=== PATIENT | male | born 1995 | race Hispanic/Latino ===

== ENCOUNTER 2018-02-04 23:30 | Emergency (ER) | payer OTHER, SELFPAY ==
[2018-02-05] MEDS ORDERED: NA CHLORIDE 0.9% 1,000 ML ONE (00:14)
[2018-02-05 00:37] LABS: Absolute Lymphocytes (CBC) 1.2 K/uL (0.7-4.9); Absolute Monocytes 0.5 K/uL (0.1-1.3); Absolute Neutrophil 9.7 K/uL (1.8-8.0); Basophils % 0.2 % (0-1.3); Eosinophils % 1.2 % (0-4.4); Hematocrit 37.6 % (39.6-49.0); Lymphocytes % 10.1 % (15.3-44.8); MCH 29.9 pg (27.0-35.0); MCV 87.9 fL (80-100); MPV 7.4 fL (7.6-11.3); Monocytes % 4.1 % (3.3-12.3); RBC Red Blood Cell Count 4.28 M/uL (4.33-5.43)
[2018-02-05 00:46] LABS: ALT/SGPT 28 U/L (12-78); AST/SGOT 21 U/L (15-37); Albumin 4.3 g/dL (3.4-5.0); Alkaline Phosphatase 56 U/L (45-117); BUN Blood Urea Nitrogen 10 mg/dL (7-18); Bicarbonate 28 mmol/L (21-32); Bilirubin Direct 0.2 mg/dL (0-0.2); Bilirubin Total 1.1 mg/dL (0.2-1.0); Glucose Level 97 mg/dL (74-106); Lipase 102 U/L (73-393); Potassium 3.6 mmol/L (3.5-5.1); Protein, Total 8.5 g/dL (6.4-8.2); Sodium Level 137 mmol/L (136-145)
[2018-02-05 01:11] LABS: Creatine Phosphokinase 159 U/L (39-308)
--- NOTE | 2018-02-05 01:23 | EDPHYS ---
Physician Documentation [facility] Name: Sundar Butler Age: 22 yrs Sex: Male : 1995 Arrival Date: 02/04/2018 Time: 23:34 Bed 24 Private MD: ED Physician Garry Barron HPI: 02/05 01:21 This 22 yrs old Male presents to ER via Ambulatory with complaints of General snw Weakness, BODY ACHES. 01:21 Working out in the heat and began to feel weak, lightheaded and nauseated. Onset: The snw symptoms/episode began/occurred gradually, and became persistent. Severity of symptoms: At their worst the symptoms were moderate. It is unknown whether or not the patient has had similar symptoms in the past. The patient has not recently seen a physician. Historical: - Allergies: 02/04 23:48 No Known Allergies; rv - Home Meds: 23:48 None [Active]; rv - PMHx: 23:48 None; rv - PSHx: 23:48 None; rv - Immunization history:: Adult Immunizations up to date. - Social history:: Smoking status: Patient/guardian denies using tobacco, never smoked. - Ebola Screening: : Patient negative for fever greater than or equal to 101.5 degrees Fahrenheit, and additional compatible Ebola Virus Disease symptoms Patient denies exposure to infectious person Patient denies travel to an Ebola-affected area in the 21 days before illness onset. ROS: 02/05 01:20 Eyes: Negative for injury, pain, redness, and discharge, ENT: Negative for injury, snw pain, and discharge, Neck: Negative for injury, pain, and swelling, Cardiovascular: Negative for chest pain, palpitations, and edema, Respiratory: Negative for shortness of breath, cough, wheezing, and pleuritic chest pain. Back: Negative for injury and pain, : Negative for injury, bleeding, discharge, and swelling, MS/Extremity: Negative for injury and deformity, Skin: Negative for injury, rash, and discoloration. Constitutional: Positive for body aches, malaise, poor PO intake. Constitutional: Positive for fatigue. Abdomen/GI: Positive for vomiting, x 1. Neuro: Positive for lightheadedness at work. Exam: 01:20 Constitutional: This is a well developed, well nourished patient who is awake, alert, snw and in no acute distress. Head/Face: Normocephalic, atraumatic. Eyes: Pupils equal round and reactive to light, extra-ocular motions intact. Lids and lashes normal. Conjunctiva and sclera are non-icteric and not injected. Cornea within normal limits. Periorbital areas with no swelling, redness, or edema. ENT: Nares patent. No nasal discharge, no septal abnormalities noted. Tympanic membranes are normal and external auditory canals are clear. Oropharynx with no redness, swelling, or masses, exudates, or evidence of obstruction, uvula midline. Mucous membranes moist. Neck: Trachea midline, no thyromegaly or masses palpated, and no cervical lymphadenopathy. Supple, full range of motion without nuchal rigidity, or vertebral point tenderness. No Meningismus. Chest/axilla: Normal chest wall appearance and motion. Nontender with no deformity. No lesions are appreciated. Cardiovascular: Regular rate and rhythm with a normal S1 and S2. No gallops, murmurs, or rubs. Normal PMI, no JVD. No pulse deficits. Respiratory: Lungs have equal breath sounds bilaterally, clear to auscultation and percussion. No rales, rhonchi or wheezes noted. No increased work of breathing, no retractions or nasal flaring. Abdomen/GI: Soft, non-tender, with normal bowel sounds. No distension or tympany. No guarding or rebound. No evidence of tenderness throughout. Back: No spinal tenderness. No costovertebral tenderness. Full range of motion. Skin: Warm, dry with normal turgor. Normal color with no rashes, no lesions, and no evidence of cellulitis. MS/ Extremity: Pulses equal, no cyanosis. Neurovascular intact. Full, normal range of motion. Neuro: Awake and alert, GCS 15, oriented to person, place, time, and situation. Cranial nerves II-XII grossly intact. Motor strength 5/5 in all extremities. Sensory grossly intact. Cerebellar exam normal. Normal gait. Vital Signs: 02/04 23:48 BP 114 / 73; Pulse 97; Pulse Ox 99% on R/A; Weight 73.21 kg (M); Height 5 ft. 5 in. rv (165.10 cm) (R); 02/05 00:44 BP 97 / 82; Pulse 90; Pulse Ox 100% ; rv 01:16 BP 115 / 78; Pulse 87; Pulse Ox 100% ; rv 02/04 23:48 Body Mass Index 26.86 (73.21 kg, 165.10 cm) rv MDM: 02/04 23:54 Patient medically screened. [facility] 02/05 01:24 Data reviewed: vital signs, nurses notes. Data interpreted: Pulse oximetry: on room air snw is 100 %. Interpretation: normal. Counseling: I had a detailed discussion with the patient and/or guardian regarding: the historical points, exam findings, and any diagnostic results supporting the discharge/admit diagnosis, lab results, the need for outpatient follow up, to return to the emergency department if symptoms worsen or persist or if there are any questions or concerns that arise at home. Special discussion: Based on the history and exam findings, there is no indication for further emergent testing or inpatient evaluation. I discussed with the patient/guardian the need to see the primary care provider for further evaluation of the symptoms. 02/05 00:01 Order name: Basic Metabolic Panel; Complete Time: 01:19 snw 02/05 00:01 Order name: CBC with Diff; Complete Time: 00:57 snw 02/05 00:01 Order name: Hepatic Function; Complete Time: : snw 02/05 00:01 Order name: Lipase; Complete Time: : snw 02/05 00:55 Order name: Urine Dipstick--Ancillary (enter results) ms 02/05 00:58 Order name: Add On-Lab [facility] 02/05 00:01 Order name: IV Saline Lock; Complete Time: 00:09 w 02/05 00:01 Order name: Labs collected and sent; Complete Time: 00:09 snw 02/05 00:01 Order name: Urine Dipstick-Ancillary (obtain specimen); Complete Time: 00:43 snw 02/05 00:59 Order name: Creatine Phosphokinase; Complete Time: 01:19 EDMS Administered Medications: 00:05 Drug: NS 0.9% 1000 ml Route: IV; Rate: 1 bolus; Site: right antecubital; rv 00:43 Follow up: IV Status: Completed infusion rv Disposition: 06:42 Co-signature as Attending Physician, Garry Barron MD I agree with the assessment and [facility] plan of care. Disposition: 02/05/18 01:23 Discharged to Home. Impression: Heat exhaustion, unspecified. - Condition is Stable. - Discharge Instructions: Heat Exhaustion Information. - Prescriptions for Zofran 4 mg Oral Tablet - take 1 tablet by ORAL route every 12 hours As needed; 6 tablet. - Work release form, Medication Reconciliation Form, Thank You Letter, Antibiotic Education, Prescription Opioid Use form. - Follow up: Private Physician; When: 2 - 3 days; Reason: Recheck today's complaints, Continuance of care, Re-evaluation by your physician. Follow up: Emergency Department; When: As needed; Reason: Worsening of condition. Signatures: Dispatcher [employer] EDMS Garry Barron, Chikis Perales MD, cha, FURNITURE ASSEMBLY SUPERVISOR-C FURNITURE ASSEMBLY SUPERVISOR-Csnw Carl Russell RN RN rv Corrections: (The following items were deleted from the chart) 01:45 01:23 02/05/2018 01:23 Discharged to Home. Impression: Heat exhaustion, unspecified. rv Condition is Stable. Forms are Medication Reconciliation Form, Thank You Letter, Antibiotic Education, Prescription Opioid Use. Follow up: Private Physician; When: 2 - 3 days; Reason: Recheck today's complaints, Continuance of care, Re-evaluation by your physician. Follow up: Emergency Department; When: As needed; Reason: Worsening of condition. snw
--- NOTE | 2018-02-05 01:23 | ER ---
Nurse's Notes [facility] Name: Sundar Butler Age: 22 yrs Sex: Male : 1995 Arrival Date: 02/04/2018 Time: 23:34 Bed 24 Private MD: Diagnosis: Heat exhaustion, unspecified Presentation: 02/04 23:47 Presenting complaint: Patient states: "I FEEL WEAK AND MY BODY ACHES AFTER WORK. IM OUT rv IN THE SUN ALL DAY.". Transition of care: patient was not received from another setting of care. Onset of symptoms was February 04, 2018 at 17:00. Risk Assessment: Do you want to hurt yourself or someone else?. Risk Assessment: Do you want to hurt yourself or someone else? Patient reports no desire to harm self or others. Initial Sepsis Screen: Does the patient meet any 2 criteria? No. Patient's initial sepsis screen is negative. Does the patient have a suspected source of infection? No. Patient's initial sepsis screen is negative. Care prior to arrival: None. 23:47 Method Of Arrival: Ambulatory rv 23:47 Acuity: JONATHAN 3 rv Historical: - Allergies: 23:48 No Known Allergies; rv - Home Meds: 23:48 None [Active]; rv - PMHx: 23:48 None; rv - PSHx: 23:48 None; rv - Immunization history:: Adult Immunizations up to date. - Social history:: Smoking status: Patient/guardian denies using tobacco, never smoked. - Ebola Screening: : Patient negative for fever greater than or equal to 101.5 degrees Fahrenheit, and additional compatible Ebola Virus Disease symptoms Patient denies exposure to infectious person Patient denies travel to an Ebola-affected area in the 21 days before illness onset. Screenin:50 Abuse screen: Denies threats or abuse. Denies injuries from another. Nutritional rv screening: No deficits noted. Tuberculosis screening: No symptoms or risk factors identified. Fall Risk None identified. Assessment: 23:49 General: Appears in no apparent distress. comfortable, Behavior is calm, cooperative. rv Pain:. Pain: Complains of pain in GENERALIZED. Neuro: Level of Consciousness is awake, alert, obeys commands, Oriented to person, place, time, situation. Cardiovascular: Capillary refill < 3 seconds. Respiratory: Airway is patent. GI: No signs and/or symptoms were reported involving the gastrointestinal system. : No signs and/or symptoms were reported regarding the genitourinary system. EENT: No signs and/or symptoms were reported regarding the EENT system. Derm: Skin is intact. Musculoskeletal: Reports weakness in GENERALIZED. 02/05 01:17 Reassessment: Patient appears in no apparent distress at this time. Patient and/or rv family updated on plan of care and expected duration. Pain level reassessed. Patient is alert, oriented x 3, equal unlabored respirations, skin warm/dry/pink. Vital Signs: 02/04 23:48 BP 114 / 73; Pulse 97; Pulse Ox 99% on R/A; Weight 73.21 kg (M); Height 5 ft. 5 in. rv (165.10 cm) (R); 02/05 00:44 BP 97 / 82; Pulse 90; Pulse Ox 100% ; rv 01:16 BP 115 / 78; Pulse 87; Pulse Ox 100% ; rv 02/04 23:48 Body Mass Index 26.86 (73.21 kg, 165.10 cm) rv ED Course: 02/04 23:34 Patient arrived in ED. al2 23:35 Chikis Roche F[facility]-C [facility] snw 23:35 Garry Barron MD is Attending Physician. snw 23:48 Triage completed. rv 23:50 Patient has correct armband on for positive identification. Bed in low position. Call rv light in reach. Side rails up X 1. Pulse ox on. NIBP on. 23:50 Patient placed in an exam room, on a stretcher, on pulse oximetry. rv 02/05 00:00 Inserted saline lock: 20 gauge in right antecubital area, using aseptic technique. rv 01:45 No provider procedures requiring assistance completed. IV discontinued, bleeding rv controlled, No redness/swelling at site. Pressure dressing applied. Administered Medications: 00:05 Drug: NS 0.9% 1000 ml Route: IV; Rate: 1 bolus; Site: right antecubital; rv 00:43 Follow up: IV Status: Completed infusion rv Outcome: 01:23 Discharge ordered by . snw 01:45 Discharged to home ambulatory. rv 01:45 Condition: good 01:45 Discharge instructions given to patient, Instructed on discharge instructions, follow up and referral plans. medication usage, Prescriptions given X 1. 01:45 Patient left the ED. rv Signatures: Chikis Roche, DISPATCHER AUTOMOBILE RENTAL-C DISPATCHER AUTOMOBILE RENTAL-Csnw Darlene Perla Ronaldo, RN RN rv
[2018-02-05 04:38] LABS: Urine Blood NEGATIVE (NEG); Urine Glucose NEGATIVE (NEG); Urine Protein NEGATIVE (NEG)
== END 2018-02-05 01:45 | disposition home or self-care (01) ==
LOC: ER 23:30
DX: T67.5XXA Heat exhaustion, unspecified, initial encounter (principal); X58.XXXA Exposure to other specified factors, initial encounter; Y93.89 Activity, other specified; Y92.9 Unspecified place or not applicable
CPT/HCPCS: 36415; 80048; 80076; 81003; 82550; 83690; 85025; 96360; 99284; J7030

== ENCOUNTER 2020-05-21 09:08 | Emergency (ER) | payer SELFPAY ==
[2020-05-21] MEDS ORDERED: HALOPERIDOL LACT 5 MG/ML INJ ONE (10:25)
[2020-05-21] MEDS ORDERED: NA CHLORIDE 0.9% 1,000 ML ONE (10:25)
[2020-05-21] MEDS ORDERED: DIPHENHYDRAMINE 50 MG/ML VIAL ONE (10:28)
[2020-05-21 10:35] LABS: Absolute Lymphocytes (CBC) 1.2 K/uL (0.7-4.9); Basophils % 0.2 % (0-1.3); Hematocrit 39.7 % (39.6-49.0); Lymphocytes % 10.8 % (15.3-44.8); MPV 7.5 fL (7.6-11.3)
[2020-05-21 10:51] LABS: ALT/SGPT 34 U/L (12-78); AST/SGOT 21 U/L (15-37); Albumin 4.9 g/dL (3.4-5.0); Alkaline Phosphatase 55 U/L (45-117); BUN Blood Urea Nitrogen 14 mg/dL (7-18); Bicarbonate 19 mmol/L (21-32); Bilirubin Direct 0.2 mg/dL (0-0.2); Glucose Level 124 mg/dL (74-106); Lipase 88 U/L (73-393); Potassium 3.6 mmol/L (3.5-5.1); Protein, Total 9.4 g/dL (6.4-8.2); Sodium Level 140 mmol/L (136-145)
--- NOTE | 2020-05-21 11:27 | EDPHYS ---
Physician Documentation [facility] Name: Sundar Butler Age: 24 yrs Sex: Male : 1995 Arrival Date: 05/21/2020 Time: 09:09 Bed 17 Private MD: ED Physician Hipolito Holm HPI: 05/21 10:03 This 24 yrs old Male presents to ER via Ambulatory with complaints of jmm Abdominal Pain. 10:03 The patient presents with abdominal pain. Onset: The symptoms/episode began/occurred jm acutely, today. The symptoms do not radiate. Associated signs and symptoms: Pertinent positives: nausea and vomiting. The symptoms are described as achy. This is a 24 year old male with no chronic medical conditions that presents to the ED with complaints of generalized abdominal pain, vomiting beginning today. Patient admits to daily marijuana use. Denies fever, denies diarrhea. . Historical: - Allergies: 10:01 No Known Allergies; ca1 - Home Meds: 10:01 None [Active]; ca1 - PMHx: 10: None; ca1 - PSHx: 10:01 None; ca1 - Immunization history:: Adult Immunizations up to date, Flu vaccine is not up to date. - Social history:: Smoking status: Patient denies any tobacco usage or history of. ROS: 10:03 Constitutional: Negative for fever, chills, and weight loss, Cardiovascular: Negative jmm for chest pain, palpitations, and edema, Respiratory: Negative for shortness of breath, cough, wheezing, and pleuritic chest pain. 10:03 Abdomen/GI: Positive for abdominal pain, nausea and vomiting. 10:03 All other systems are negative. Exam: 10:03 Head/Face: atraumatic. Eyes: EOMI, no conjunctival erythema appreciated ENT: Moist jmm Mucus Membranes Neck: Trachea midline, Supple Chest/axilla: Normal chest wall appearance and motion. Cardiovascular: Regular rate and rhythm. No edema appreciated Respiratory: Normal respirations, no respiratory distress appreciated 10:03 Back: Normal ROM Skin: General appearance color normal MS/ Extremity: Moves all extremities, no obvious deformities appreciated, no edema noted to the lower extremities Neuro: Awake and alert, normal gait Psych: Behavior is normal, Mood is normal, Patient is cooperative and pleasant 10:03 Constitutional: The patient appears alert, awake, in obvious distress. 10:03 Abdomen/GI: Inspection: abdomen appears normal, Bowel sounds: normal, Palpation: soft, mild abdominal tenderness, in all quadrants. Vital Signs: 10:00 BP 123 / 71; Pulse 72; Resp 16 S; Temp 97.1(TE); Pulse Ox 100% on R/A; Weight 70.31 kg ca1 (R); Height 5 ft. 5 in. (165.10 cm) (R); Pain 10/10; 10:46 BP 117 / 80; Pulse 91; Resp 16 S; Pulse Ox 100% on R/A; ca1 11:26 BP 107 / 63; Pulse 89; Resp 16 S; Pulse Ox 100% on R/A; ca1 10:00 Body Mass Index 25.79 (70.31 kg, 165.10 cm) ca1 MDM: 10:03 Patient medically screened. [facility] 11:25 Data reviewed: vital signs, nurses notes. Counseling: I had a detailed discussion with [facility] the patient and/or guardian regarding: the historical points, exam findings, and any diagnostic results supporting the discharge/admit diagnosis, lab results, the need for outpatient follow up, to return to the emergency department if symptoms worsen or persist or if there are any questions or concerns that arise at home. Refusal of service: The patient/guardian displays adequate decision making capability and despite a detailed discussion of alternatives, benefits, risks, and consequences refuses: CT Scan. ED course: Pain decreased with IV haldol. Pain decreased on reexamination. Patient given strict return precautions. Patient understood and agrees with the plan of care. . 05/21 10:04 Order name: Basic Metabolic Panel; Complete Time: 10:53 [facility] 05/21 10:04 Order name: CBC with Diff [facility] 05/21 10:04 Order name: Hepatic Function; Complete Time: 10:53 [facility] 05/21 10:04 Order name: Lipase; Complete Time: 10:53 [facility] 05/21 10:04 Order name: IV Saline Lock; Complete Time: 10:07 [facility] 05/21 10:04 Order name: Labs collected and sent; Complete Time: 10:08 [facility] Administered Medications: 10:10 Drug: NS 0.9% 1000 ml Route: IV; Rate: 1 bolus; Site: right antecubital; ca1 10:13 Drug: HALdol 5 mg Route: IVP; Site: right antecubital; ca1 10:15 Drug: diphenhydrAMINE 25 mg Route: IVP; Site: right antecubital; ca1 Disposition: 12:27 Co-signature as Attending Physician, Hipolito Holm MD. rn Disposition: 05/21/20 11:26 Discharged to Home. Impression: Vomiting. - Condition is Stable. - Discharge Instructions: Nausea and Vomiting, Adult. - Prescriptions for Zofran ODT 4 mg Oral tablet,disintegrating - place 1 tablet by TRANSLINGUAL route every 4-6 hours; 20 tablet. - Medication Reconciliation Form, Thank You Letter, Antibiotic Education, Prescription Opioid Use form. - Follow up: Private Physician; When: 2 - 3 days; Reason: Recheck today's complaints, Continuance of care, Re-evaluation by your physician. Signatures: Dispatcher [employer] EDMS Souleymane Rivera PA PA jmm Nieto, Roman, MD MD rn Acob, KIM Soriano RN ca1 Corrections: (The following items were deleted from the chart) 11:35 11:26 05/21/2020 11:26 Discharged to Home. Impression: Vomiting. Condition is Stable. ca1 Forms are Medication Reconciliation Form, Thank You Letter, Antibiotic Education, Prescription Opioid Use. Follow up: Private Physician; When: 2 - 3 days; Reason: Recheck today's complaints, Continuance of care, Re-evaluation by your physician. genesis
--- NOTE | 2020-05-21 11:27 | ER ---
Nurse's Notes [facility] Name: Sundar Butler Age: 24 yrs Sex: Male : 1995 Arrival Date: 05/21/2020 Time: 09:09 Bed 17 Private MD: Diagnosis: Vomiting Presentation: 05/21 10:00 Chief complaint: Patient states: Abdl pain since 0600 today. Reports N/V/D. Coronavirus ca1 screen: Client denies travel out of the [place] in the last 14 days. diarrhea, nausea, vomiting. Client presents with at least one sign or symptom that may indicate coronavirus-19. Standard/surgical mask placed on the client. Provider contacted for isolation considerations. Ebola Screen: Patient negative for fever greater than or equal to 101.5 degrees Fahrenheit, and additional compatible Ebola Virus Disease symptoms Patient denies exposure to infectious person. Patient denies travel to an Ebola-affected area in the 21 days before illness onset. No symptoms or risks identified at this time. Initial Sepsis Screen: Does the patient meet any 2 criteria? No. Patient's initial sepsis screen is negative. Does the patient have a suspected source of infection? No. Patient's initial sepsis screen is negative. Risk Assessment: Do you want to hurt yourself or someone else? Patient reports no desire to harm self or others. Onset of symptoms was May 21, 2020 at 06:00. 10:00 Method Of Arrival: Ambulatory ca1 10:00 Acuity: JONATHAN 2 ca1 Triage Assessment: 10:01 General: Appears in no apparent distress. uncomfortable, Behavior is cooperative, ca1 appropriate for age, crying. Pain: Complains of pain in abdomen Pain currently is 10 out of 10 on a pain scale. Pain began 4 hours ago. Is continuous. EENT: No signs and/or symptoms were reported regarding the EENT system. Neuro: Level of Consciousness is awake, alert, obeys commands, Oriented to person, place, time, situation. Cardiovascular: Heart tones S1 S2 present Capillary refill < 3 seconds Patient's skin is warm and dry. Respiratory: Airway is patent Respiratory effort is even, unlabored, Respiratory pattern is regular, symmetrical, Breath sounds are clear bilaterally. GI: Abdomen is flat, non-distended, Bowel sounds present X 4 quads. Abd is soft X 4 quads Abdomen is tender to palpation in right upper quadrant, left upper quadrant, right lower quadrant and left lower quadrant Reports diarrhea, nausea, vomiting. : No signs and/or symptoms were reported regarding the genitourinary system. Derm: Skin is intact, is healthy with good turgor, Skin is pink, warm \\T\\ dry. Musculoskeletal: Circulation, motion, and sensation intact. Capillary refill < 3 seconds. Historical: - Allergies: 10:01 No Known Allergies; ca1 - Home Meds: 10: None [Active]; ca1 - PMHx: 10: None; ca1 - PSHx: 10: None; ca1 - Immunization history:: Adult Immunizations up to date, Flu vaccine is not up to date. - Social history:: Smoking status: Patient denies any tobacco usage or history of. Screenin:03 Abuse screen: Denies threats or abuse. Denies injuries from another. Nutritional ca1 screening: No deficits noted. Tuberculosis screening: No symptoms or risk factors identified. Fall Risk IV access (20 points). Assessment: 10:03 Reassessment: see triage notes. ca1 10:46 Reassessment: Patient appears in no apparent distress at this time. Patient and/or ca1 family updated on plan of care and expected duration. Pain level reassessed. Patient is alert, oriented x 3, equal unlabored respirations, skin warm/dry/pink. General: Appears in no apparent distress. comfortable, Behavior is calm, cooperative, appropriate for age. 11:26 Reassessment: Patient appears in no apparent distress at this time. Patient and/or ca1 family updated on plan of care and expected duration. Pain level reassessed. Patient is alert, oriented x 3, equal unlabored respirations, skin warm/dry/pink. Pt states, "I refused CT scan cause I can't afford it" Patient states feeling better. Patient states symptoms have improved. Vital Signs: 10:00 BP 123 / 71; Pulse 72; Resp 16 S; Temp 97.1(TE); Pulse Ox 100% on R/A; Weight 70.31 kg ca1 (R); Height 5 ft. 5 in. (165.10 cm) (R); Pain 10/10; 10:46 BP 117 / 80; Pulse 91; Resp 16 S; Pulse Ox 100% on R/A; ca1 11:26 BP 107 / 63; Pulse 89; Resp 16 S; Pulse Ox 100% on R/A; ca1 10:00 Body Mass Index 25.79 (70.31 kg, 165.10 cm) ca1 ED Course: 09:09 Patient arrived in ED. as 09:50 Pavan Rivera PA is PHCP. genesis 09:50 Hipolito Holm MD is Attending Physician. [facility] 10:00 Christie Leon, KIM is Primary Nurse. ca1 10:01 Triage completed. ca1 10:01 Arm band placed on right wrist. ca1 10:03 Patient has correct armband on for positive identification. Placed in gown. Bed in low ca1 position. Call light in reach. Side rails up X 1. Pulse ox on. NIBP on. Warm blanket given. 10:08 Initial lab(s) drawn, by me, sent to lab. Inserted saline lock: 20 gauge in right ca1 antecubital area, using aseptic technique. Blood collected. 11:21 Radiology exam delayed due to PT REFUSING EXAM. PAVAN NOTIFIED. bq 11:35 No provider procedures requiring assistance completed. IV discontinued, intact, ca1 bleeding controlled, No redness/swelling at site. Pressure dressing applied. Administered Medications: 10:10 Drug: NS 0.9% 1000 ml Route: IV; Rate: 1 bolus; Site: right antecubital; ca1 10:13 Drug: HALdol 5 mg Route: IVP; Site: right antecubital; ca1 10:15 Drug: diphenhydrAMINE 25 mg Route: IVP; Site: right antecubital; ca1 Outcome: 11:26 Discharge ordered by . [facility] 11:35 Discharged to home ambulatory, with significant other. ca1 11:35 Condition: stable 11:35 Discharge instructions given to patient, Instructed on discharge instructions, follow up and referral plans. medication usage, Demonstrated understanding of instructions, follow-up care, medications, Prescriptions given X 1. 11:35 Patient left the ED. ca1 Signatures: Pavan Rivera PA PA jmm Quilty, Betty bq Martinez, Amelia as Christie Leon, RN RN ca1
[2020-05-21 11:46] LABS: Blood Morphology Comment NOT SEEN (NOT SEEN); Platelet Estimate ADEQ; White Blood Cell Scan OK (OK)
[2020-05-21 13:12] VITALS: TEMP 97.1; O2SAT 100
[2020-05-21 13:15] VITALS: BP 107/63
== END 2020-05-21 11:35 | disposition home or self-care (01) ==
LOC: ER 09:08
DX: R10.84 Generalized abdominal pain (principal); R11.2 Nausea with vomiting, unspecified
CPT/HCPCS: 36415; 80048; 80076; 83690; 85025; 96374; 96375; 99284; J1200; J1630; J7030